=== PATIENT | male | born 1950 | race Caucasian/White ===

== ENCOUNTER 2020-07-20 18:33 | Inpatient (IN) | payer OTHER, MEDICARE ==
[~2020-07-20] VITALS: Ht 365.8 cm; Wt 80.8 kg
[2020-07-20] MEDS ORDERED: LIDOCAINE HCL 2% TOP JELLY 5ML TOP ONE (19:20)
[2020-07-21] MEDS ORDERED: oxyCODONE HCL 5MG TAB PO ONE (06:15)
[2020-07-21 09:13] LABS: Hematocrit 31.4 % (41.0-53.0); Mean Corpuscular Hemoglobin 33.6 pg (28.0-32.0); Mean Corpuscular Hgb Conc. 34.9 g/dL (32.0-36.0); Mean Corpuscular Volume 96.3 fL (80.0-100.0); Red Blood Cells 3.26 10^6/uL (4.5-5.90); Red Cell Distribution Width 13.7 % (11.8-14.3); White Blood Cell 8.2 10^3/uL (4.4-10.8)
[2020-07-21 09:19] LABS: Basophils % (manual) 0 (0.0-2.0); Blast Cells 0; Eosinophils % (manual) 0 (0-7); Myelocytes % 0; Promyelocytes % 0; Reactive Lymphocytes 0
[2020-07-21 09:20] LABS: Albumin 1.9 g/dL (3.4-5.0); Calcium 8.1 mg/dL (8.5-10.1); Potassium 3.9 mmol/L (3.5-5.1)
[2020-07-21 09:23] LABS: Bilirubin, Total 0.4 mg/dL (0.2-1.0); Total Protein 5.9 g/dL (6.4-8.2)
[2020-07-21 09:34] LABS: Urine Bacteria FEW /hpf (None Seen); Urine Blood 2+ /uL (Negative); Urine Mucus FEW (None Seen); Urine Specific Gravity 1.015 (1.001-1.035); Urine WBC 1819 /hpf (0 - 3); Urine WBC Clumps PRESENT /hpf (None Seen)
[2020-07-21 09:41] LABS: INR 4.6 (0.9-1.15)
[2020-07-21 11:59] LABS: INR 1.01 (0.9-1.15)
[2020-07-21] MEDS ORDERED: SODIUM CHLORIDE 0.9% 1,000 ML IV SCH (12:30)
[2020-07-21] MEDS ORDERED: cefTRIAXone 1GM/50ML D5W 50 ML IV ONE (12:30)
[2020-07-21 12:42] LABS: Band Neutrophils % (manual) 21; Lymphocytes % (manual) 12 (10.0-50.0)
[2020-07-21 12:43] LABS: Metamyelocytes % 1; Monocytes % (manual) 22 (0-12)
[2020-07-21] MEDS ORDERED: HYDROcodone-ACET 5/325MG TAB PO ONE (13:15)
[2020-07-21] MEDS ORDERED: HYDROcodone-ACET 5/325MG TAB ONE (13:34)
[2020-07-21] MEDS ORDERED: LIDOCAINE 2% (LOCAL ANESTH.) PF 5ml SDV ONE (13:56)
[2020-07-21] MEDS ORDERED: NITROGLYCERIN 0.4 MG SL TAB SL PRN (14:30)
[2020-07-21] MEDS ORDERED: MORPHINE SULFATE INJECTION 2 MG/ML SYRG IV PRN ×2 (14:30)
[2020-07-21] MEDS: SODIUM CHLORIDE 0.9% 1,000 ML IV SCH (15:29)
[2020-07-21] MEDS ORDERED: ATE50T PO (20:43)
[2020-07-21] MEDS ORDERED: METF-370 PO (20:43)
[2020-07-21] MEDS ORDERED: METH10T GT (20:43)
[2020-07-21] MEDS ORDERED: TRAZ-181 PO (20:43)
[2020-07-21 21:30] VITALS: BP 127/78
[2020-07-21 22:00] VITALS: BP 127/78
[2020-07-22] MEDS: SODIUM CHLORIDE 0.9% 1,000 ML IV SCH ×2 (04:42→17:10)
[2020-07-22 05:52] VITALS: BP 108/61
[2020-07-22 05:57] LABS: Basophils # (auto) 0.1 10 ^3/uL (0-0.2); Basophils % (auto) 0.9 % (0.0-2.0); Eosinophils # (auto) 0.2 10 ^3/uL (0-0.8); Hematocrit 40.3 % (41.0-53.0); Hemoglobin 14.1 g/dL (13.5-17.5); Lymphocytes # (auto) 1.7 10 ^3/uL (0.4-5.4); Mean Corpuscular Hemoglobin 33.3 pg (28.0-32.0); Mean Corpuscular Hgb Conc. 34.9 g/dL (32.0-36.0); Mean Corpuscular Volume 95.4 fL (80.0-100.0); Monocytes % (auto) 9.3 % (0.0-12.0); Neutrophils # (auto) 7.8 10 ^3/uL (1.6-8.6); Neutrophils % (auto) 71.8 % (37.0-80.0); Nucleated Red Blood Cells % 0.2 %; Red Blood Cells 4.22 10^6/uL (4.5-5.90); Red Cell Distribution Width 15.3 % (11.8-14.3); White Blood Cell 10.9 10^3/uL (4.4-10.8)
[2020-07-22 06:21] LABS: Potassium 3.6 mmol/L (3.5-5.1)
[2020-07-22 06:28] LABS: BUN/Creatinine Ratio 10.8; Calcium 8.6 mg/dL (8.5-10.1)
[2020-07-22 08:53] VITALS: BP 127/72
[2020-07-22] MEDS ORDERED: METHADONE HCL 10 MG TAB PO SCH ×2 (10:00)
[2020-07-22] MEDS ORDERED: fentaNYL CITRATE 100 MCG/2 ML VL ONE (10:19)
[2020-07-22 13:06] VITALS: BP 143/81
[2020-07-22 16:44] VITALS: BP 152/58
[2020-07-22 17:59] VITALS: BP 127/72
== END 2020-07-22 18:45 | disposition home or self-care (01) | DRG 699 ==
LOC: EDBD 18:33 → ER 18:33 → TELE 07-21 14:24 → TELE-WESTW 07-21 21:07
PROVIDERS: ADMIT Nurse Practitioner Acute Care; ATTEND Internal Medicine
PROC: 0T9B70Z Drainage of Bladder with Drainage Device, Via Natural or Artificial Opening (ICD-10-PCS; principal; 2020-07-22)
DX: T83.028A Displacement of other urinary catheter, initial encounter (principal); N17.9 Acute kidney failure, unspecified; E44.0 Moderate protein-calorie malnutrition; E87.1 Hypo-osmolality and hyponatremia; N30.90 Cystitis, unspecified without hematuria; N13.9 Obstructive and reflux uropathy, unspecified; G89.4 Chronic pain syndrome; Z88.0 Allergy status to penicillin; Z20.822 Contact with and (suspected) exposure to COVID-19; E78.5 Hyperlipidemia, unspecified; F17.210 Nicotine dependence, cigarettes, uncomplicated; I25.10 Atherosclerotic heart disease of native coronary artery without angina pectoris; I45.10 Unspecified right bundle-branch block; I50.9 Heart failure, unspecified; J44.9 Chronic obstructive pulmonary disease, unspecified; Y73.8 Miscellaneous gastroenterology and urology devices associated with adverse incidents, not elsewhere classified; Z79.891 Long term (current) use of opiate analgesic; Z85.828 Personal history of other malignant neoplasm of skin; Z96.659 Presence of unspecified artificial knee joint; Y92.89 Other specified places as the place of occurrence of the external cause
CPT/HCPCS: 36415; 76856; 76942; 80048; 80053; 81001; 85007; 85025; 85027; 85610; 87086; 87088; 87186; 87426; 96365; A4223; C1729; G0378; J0696; J2001

== ENCOUNTER 2022-10-17 14:11 | Inpatient (IN) | payer MEDICARE, OTHER ==
[~2022-10-17] VITALS: Ht 167.6 cm; Wt 68.0 kg
[~2022-10-17 14:11] MED LIST: METF-370 PO; METH10T GT; TRAZ-181 PO
[2022-10-17 15:51] LABS: Basophils # (auto) 0.1 10 ^3/uL (0-0.2); Basophils % (auto) 0.6 % (0.0-2.0); Eosinophils # (auto) 0 10 ^3/uL (0-0.8); Eosinophils % (auto) 0.4 % (0.0-7.0); Hematocrit 36.2 % (41.0-53.0); Lymphocytes # (auto) 0.7 10 ^3/uL (0.4-5.4); Lymphocytes % (auto) 6.3 % (10.0-50.0); Mean Corpuscular Hemoglobin 30.2 pg (28.0-32.0); Mean Corpuscular Hgb Conc. 33.2 g/dL (32.0-36.0); Mean Corpuscular Volume 91.1 fL (80.0-100.0); Monocytes # (auto) 0.9 10 ^3/uL (0-1.3); Neutrophils # (auto) 8.7 10 ^3/uL (1.6-8.6); Neutrophils % (auto) 83.7 % (37.0-80.0); Red Blood Cells 3.98 10^6/uL (4.5-5.90); White Blood Cell 10.4 10^3/uL (4.4-10.8)
[2022-10-17 16:35] LABS: Alanine Aminotransferase 13 U/L (7-40); Albumin 3.7 g/dL (3.2-4.8); Alkaline Phosphatase 101 U/L (46-116); Anion Gap 10.5 (5-15); Aspartate Aminotransferase 9 U/L (13-40); BUN/Creatinine Ratio 21.8 (10.0-20.0); Blood Urea Nitrogen 62 mg/dL (9-23); Calcium 9.2 mg/dL (8.7-10.4); Carbon Dioxide 19.5 mmol/L (20-30); Chloride 106 mmol/L (98-107); Glucose 143 mg/dL (74-106); Lipase 41 U/L (12-53); Sodium 136 mmol/L (136-145)
[2022-10-17 16:36] LABS: Bilirubin, Total 0.3 mg/dL (0.2-1.0); Total Protein 6.8 g/dL (5.7-8.2)
[2022-10-17] MEDS ORDERED: SODIUM CHLORIDE 0.9% 1,000 ML IV ONE ×2 (18:00→19:30)
[2022-10-17] MEDS ORDERED: ACETAMINOPHEN 325 MG TAB PO PRN (19:30)
[2022-10-17 20:59] VITALS: PULSE 56; RESP 16; O2SAT 99
[2022-10-17] MEDS ORDERED: CIPROFLOXACIN 400MG/200ML 200 ML IV ONE (21:30)
[2022-10-17] MEDS ORDERED: DEXTROSE (50%) 50ML SYRG IV PRN (21:45)
[2022-10-17] MEDS ORDERED: IPRATROPIUM BROM 0.5 MG/2.5ML INH SOL NEB PRN (21:45)
[2022-10-17] MEDS: SODIUM CHLORIDE 0.9% 1,000 ML IV SCH (21:45)
[2022-10-17] MEDS ORDERED: ALBUTEROL SULF 2.5 MG/0.5ML(0.5%) NEB SOLN NEB PRN (21:45)
[2022-10-17] MEDS: ACCU-CHEK COMFORT CURVE STRIP VI SCH (22:00)
[2022-10-17 22:51] LABS: Urine Bacteria MOD /hpf (None Seen); Urine Blood 3+ /uL (Negative); Urine Clarity CLOUDY (Clear); Urine Color Red (Yellow); Urine Protein, UAD 2+ (Negative); Urine Urobilinogen Normal (Negative); Urine WBC 1550 /hpf (0 - 3); Urine WBC Clumps PRESENT /hpf (None Seen); Urine pH 6.5 (5.0-8.0)
[2022-10-17 22:58] LABS: Urine Specific Gravity 1.016 (1.001-1.035)
[2022-10-17] MEDS: InsuLIN REG 1unit/0.01ml Soln (100units/ml) SC SCH (23:15)
[2022-10-18] VITALS (11 sets, daily range): BP systolic 83–120; BP diastolic 55–69; PULSE 49–69; RESP 13–19; TEMP 97.4–97.9; O2SAT 92–98
[2022-10-18] MEDS: SODIUM CHLORIDE 0.9% 1,000 ML IV SCH ×3 (05:34→17:42)
[2022-10-18] MEDS: ACCU-CHEK COMFORT CURVE STRIP VI SCH ×4 (06:03→22:00)
[2022-10-18] MEDS: InsuLIN REG 1unit/0.01ml Soln (100units/ml) SC SCH ×4 (06:04→21:28)
[2022-10-18 06:57] LABS: Basophils # (auto) 0 10 ^3/uL (0-0.2); Basophils % (auto) 0.5 % (0.0-2.0); Eosinophils # (auto) 0.2 10 ^3/uL (0-0.8); Eosinophils % (auto) 1.8 % (0.0-7.0); Hematocrit 34.5 % (41.0-53.0); Hemoglobin 11.4 g/dL (13.5-17.5); Lymphocytes # (auto) 0.7 10 ^3/uL (0.4-5.4); Lymphocytes % (auto) 7.5 % (10.0-50.0); Mean Corpuscular Hemoglobin 30.5 pg (28.0-32.0); Mean Corpuscular Hgb Conc. 33.2 g/dL (32.0-36.0); Mean Corpuscular Volume 91.9 fL (80.0-100.0); Monocytes # (auto) 0.8 10 ^3/uL (0-1.3); Monocytes % (auto) 8.7 % (0.0-12.0); Neutrophils # (auto) 7.6 10 ^3/uL (1.6-8.6); Neutrophils % (auto) 81.5 % (37.0-80.0); Nucleated Red Blood Cells % 0.1 %; Red Blood Cells 3.75 10^6/uL (4.5-5.90); White Blood Cell 9.3 10^3/uL (4.4-10.8)
[2022-10-18 07:17] LABS: Alanine Aminotransferase 10 U/L (7-40); Albumin 3.2 g/dL (3.2-4.8); Alkaline Phosphatase 90 U/L (46-116); Anion Gap 8.1 (5-15); Aspartate Aminotransferase 11 U/L (13-40); BUN/Creatinine Ratio 23.9 (10.0-20.0); Blood Urea Nitrogen 59 mg/dL (9-23); Calcium 8.5 mg/dL (8.5-10.1); Carbon Dioxide 21.9 mmol/L (20-30); Chloride 105 mmol/L (98-107); Cholesterol 111 mg/dL (< 200); Glucose 149 mg/dL (74-106); HDL Cholesterol 33 mg/dL (40-59); LDL Cholesterol 57 mg/dL (< 100); Potassium 3.9 mmol/L (3.5-5.1); Sodium 135 mmol/L (136-145); Triglycerides 108 mg/dL (< 150)
[2022-10-18 07:18] LABS: Bilirubin, Total 0.2 mg/dL (0.2-1.0); Total Protein 5.8 g/dL (5.7-8.2)
[2022-10-18] MEDS: METHADONE HCL 10 MG TAB PO SCH ×2 (08:54→21:22)
[2022-10-18] MEDS ORDERED: PANTOPRAZOLE 40 MG TAB PO SCH (10:00)
[2022-10-18 10:38] LABS: INR 1.09 (0.9-1.15); Prothrombin Time 11.4 sec (9.3-11.8)
[2022-10-18] MEDS ORDERED: fentaNYL CITRATE 100 MCG/2 ML VL ONE (12:35)
[2022-10-18] MEDS ORDERED: MIDAZOLAM HCL 2MG/2ML 2ml VIAL (1mg/ml) ONE (12:35)
[2022-10-18] MEDS ORDERED: IODIXANOL 320MG/ML 100ML BTL IV ONE ×2 (12:35→13:37)
[2022-10-18] MEDS ORDERED: LIDOCAINE 2%HCL (LOCAL ANESTH.) INJ 20ML MDV ONE (12:35)
[2022-10-18] MEDS ORDERED: SODIUM CHL 0.9% 50 ML ONE (12:36)
[2022-10-18] MEDS ORDERED: IOHEXOL 350 MG/ML 100ML IJ ONE (13:37)
[2022-10-18] MEDS: CIPROFLOXACIN 400MG/200ML 200 ML IV SCH (21:22)
[2022-10-18] MEDS: traZODone HCL 50 MG TAB PO SCH (23:29)
[2022-10-19] MEDS: SODIUM CHLORIDE 0.9% 1,000 ML IV SCH ×3 (02:44→20:25)
[2022-10-19] MEDS: ACCU-CHEK COMFORT CURVE STRIP VI SCH ×4 (06:30→22:00)
[2022-10-19] MEDS: InsuLIN REG 1unit/0.01ml Soln (100units/ml) SC SCH ×3 (06:30→17:00)
[2022-10-19 09:35] VITALS: BP 120/59; PULSE 57; RESP 16; TEMP 98; O2SAT 91
[2022-10-19] MEDS: METHADONE HCL 10 MG TAB PO SCH ×2 (09:49→22:15)
[2022-10-19 12:45] VITALS: BP 107/67; PULSE 55; RESP 15; TEMP 97.9; O2SAT 97
[2022-10-19 16:30] VITALS: BP 109/51; PULSE 49; RESP 16; TEMP 98; O2SAT 95
[2022-10-19 22:00] VITALS: BP 108/44; PULSE 54; RESP 18; TEMP 98.4; O2SAT 95
[2022-10-19] MEDS: traZODone HCL 50 MG TAB PO SCH (22:16)
[2022-10-19] MEDS: CIPROFLOXACIN 400MG/200ML 200 ML IV SCH (22:16)
[2022-10-20 05:00] VITALS: BP 127/59; PULSE 63; RESP 18; TEMP 98.5; O2SAT 91
[2022-10-20] MEDS: ACCU-CHEK COMFORT CURVE STRIP VI SCH ×4 (06:00→22:27)
[2022-10-20] MEDS: InsuLIN REG 1unit/0.01ml Soln (100units/ml) SC SCH ×4 (06:05→22:26)
[2022-10-20 09:00] VITALS: BP 130/73; PULSE 52; RESP 20; TEMP 98.5; O2SAT 97
[2022-10-20] MEDS: SODIUM CHLORIDE 0.9% 1,000 ML IV SCH ×3 (10:26→23:05)
[2022-10-20] MEDS: METHADONE HCL 10 MG TAB PO SCH ×2 (10:26→22:22)
[2022-10-20 13:00] VITALS: BP 132/64; PULSE 48; RESP 16; TEMP 97.9; O2SAT 97
[2022-10-20 17:00] VITALS: BP 125/74; PULSE 55; RESP 22; TEMP 98.5; O2SAT 96
[2022-10-20] MEDS: CIPROFLOXACIN 400MG/200ML 200 ML IV SCH (21:18)
[2022-10-20] MEDS: traZODone HCL 50 MG TAB PO SCH (22:23)
[2022-10-20 22:56] VITALS: BP 122/68; PULSE 53; RESP 19; TEMP 97.7; O2SAT 96
[2022-10-21 04:51] VITALS: BP 117/66; PULSE 52; RESP 17; TEMP 97.1; O2SAT 96
[2022-10-21] MEDS: SODIUM CHLORIDE 0.9% 1,000 ML IV SCH ×4 (05:45→19:05)
[2022-10-21] MEDS: InsuLIN REG 1unit/0.01ml Soln (100units/ml) SC SCH ×4 (06:52→20:52)
[2022-10-21] MEDS: ACCU-CHEK COMFORT CURVE STRIP VI SCH ×4 (06:53→21:02)
[2022-10-21] MEDS ORDERED: CIPR-173 PO (08:17)
[2022-10-21 09:00] VITALS: BP 109/56; PULSE 61; RESP 16; TEMP 97.5; O2SAT 96
[2022-10-21 09:59] LABS: Basophils # (auto) 0.1 10 ^3/uL (0-0.2); Basophils % (auto) 0.8 % (0.0-2.0); Eosinophils # (auto) 0.2 10 ^3/uL (0-0.8); Eosinophils % (auto) 1.8 % (0.0-7.0); Hematocrit 33.6 % (41.0-53.0); Hemoglobin 11.2 g/dL (13.5-17.5); Lymphocytes # (auto) 0.6 10 ^3/uL (0.4-5.4); Mean Corpuscular Hemoglobin 30.1 pg (28.0-32.0); Mean Corpuscular Hgb Conc. 33.3 g/dL (32.0-36.0); Mean Corpuscular Volume 90.2 fL (80.0-100.0); Monocytes # (auto) 0.8 10 ^3/uL (0-1.3); Neutrophils # (auto) 8.9 10 ^3/uL (1.6-8.6); Neutrophils % (auto) 83.4 % (37.0-80.0); Red Blood Cells 3.72 10^6/uL (4.5-5.90); White Blood Cell 10.6 10^3/uL (4.4-10.8)
[2022-10-21 10:09] LABS: Chloride 105 mmol/L (98-107); Potassium 3.9 mmol/L (3.5-5.1); Sodium 134 mmol/L (136-145)
[2022-10-21 10:10] LABS: Anion Gap 5.4 (5-15); Carbon Dioxide 23.6 mmol/L (20-30)
[2022-10-21 10:11] LABS: Calcium 8.5 mg/dL (8.5-10.1)
[2022-10-21 10:15] LABS: BUN/Creatinine Ratio 14.6 (10.0-20.0); Blood Urea Nitrogen 23 mg/dL (9-23); Glucose 198 mg/dL (74-106)
[2022-10-21] MEDS: METHADONE HCL 10 MG TAB PO SCH ×2 (11:04→21:02)
[2022-10-21] MEDS ORDERED: SODIUM CHLORIDE 0.9% 1,000 ML IV ONE (11:15)
[2022-10-21 13:00] VITALS: BP 119/72; PULSE 54; RESP 14; TEMP 97.8; O2SAT 98
[2022-10-21] MEDS: CIPROFLOXACIN 400MG/200ML 200 ML IV SCH (13:46)
[2022-10-21 17:00] VITALS: BP 126/67; PULSE 54; RESP 18; TEMP 98; O2SAT 99
[2022-10-21 20:00] VITALS: TEMP 36.7
[2022-10-21] MEDS: traZODone HCL 50 MG TAB PO SCH (21:01)
[2022-10-21 22:00] VITALS: BP 104/57; PULSE 54; RESP 18; TEMP 97.6; O2SAT 97
[2022-10-22] MEDS: SODIUM CHLORIDE 0.9% 1,000 ML IV SCH ×2 (01:45→10:11)
[2022-10-22 05:00] VITALS: BP 131/47; PULSE 73; RESP 18; TEMP 98; O2SAT 98
[2022-10-22 06:20] LABS: Chloride 105 mmol/L (98-107); Potassium 4.3 mmol/L (3.5-5.1); Sodium 133 mmol/L (136-145)
[2022-10-22 06:21] LABS: Calcium 8.6 mg/dL (8.5-10.1)
[2022-10-22 06:24] LABS: Carbon Dioxide 23.4 mmol/L (20-30)
[2022-10-22 06:26] LABS: BUN/Creatinine Ratio 13.8 (10.0-20.0); Blood Urea Nitrogen 21 mg/dL (9-23); Glucose 119 mg/dL (74-106)
[2022-10-22] MEDS: InsuLIN REG 1unit/0.01ml Soln (100units/ml) SC SCH ×2 (06:50→12:45)
[2022-10-22] MEDS: CIPROFLOXACIN 400MG/200ML 200 ML IV SCH (06:50)
[2022-10-22] MEDS: ACCU-CHEK COMFORT CURVE STRIP VI SCH ×2 (06:51→12:13)
[2022-10-22 07:22] LABS: Anion Gap 5 (5-15)
[2022-10-22 08:00] VITALS: BP 123/63; PULSE 55; RESP 18; TEMP 98.4
[2022-10-22 09:15] VITALS: BP 123/63; PULSE 55; RESP 18; TEMP 98.4; O2SAT 97
[2022-10-22] MEDS: METHADONE HCL 10 MG TAB PO SCH (10:11)
[2022-10-22 11:45] VITALS: BP 123/63; PULSE 62; RESP 18; TEMP 36.9; O2SAT 97
[2022-10-22 13:02] VITALS: BP 108/59; PULSE 60; RESP 20; TEMP 97.7; O2SAT 96
== END 2022-10-22 13:15 | disposition home or self-care (01) | DRG 698 ==
LOC: EDBD 14:11 → ER 14:11 → OVERFLOW 19:30 → CENTRAL 10-18 01:33
PROVIDERS: ADMIT Nurse Practitioner Family; ATTEND Family Medicine
PROC: 0T9430Z Drainage of Left Kidney Pelvis with Drainage Device, Percutaneous Approach (ICD-10-PCS; principal; 2022-10-18)
PROC: 0T25X0Z Change Drainage Device in Kidney, External Approach (ICD-10-PCS; 2022-10-18)
PROC: BT13YZZ Fluoroscopy of Bilateral Kidneys using Other Contrast (ICD-10-PCS; 2022-10-18)
PROC: BT42ZZZ Ultrasonography of Left Kidney (ICD-10-PCS; 2022-10-18)
DX: N99.522 Malfunction of incontinent external stoma of urinary tract (principal); N17.0 Acute kidney failure with tubular necrosis; N13.6 Pyonephrosis; N17.9 Acute kidney failure, unspecified; J44.9 Chronic obstructive pulmonary disease, unspecified; E78.5 Hyperlipidemia, unspecified; G89.29 Other chronic pain; B96.20 Unspecified Escherichia coli [E. coli] as the cause of diseases classified elsewhere; B96.4 Proteus (mirabilis) (morganii) as the cause of diseases classified elsewhere; E11.22 Type 2 diabetes mellitus with diabetic chronic kidney disease; F17.210 Nicotine dependence, cigarettes, uncomplicated; I12.9 Hypertensive chronic kidney disease with stage 1 through stage 4 chronic kidney disease, or unspecified chronic kidney disease; M54.50 Low back pain, unspecified; N18.9 Chronic kidney disease, unspecified; Z87.440 Personal history of urinary (tract) infections; Y73.2 Prosthetic and other implants, materials and accessory gastroenterology and urology devices associated with adverse incidents; Y92.89 Other specified places as the place of occurrence of the external cause; Z88.0 Allergy status to penicillin; Z88.8 Allergy status to other drugs, medicaments and biological substances; Z99.3 Dependence on wheelchair; Z79.82 Long term (current) use of aspirin; Z90.49 Acquired absence of other specified parts of digestive tract
CPT/HCPCS: 36415; 50432; 74176; 74425; 76775; 76942; 80048; 80053; 80061; 81001; 82962; 83036; 83605; 83690; 84484; 85025; 85610; 85730; 86850; 86900; 86901; 87040; 87086; 87088; 87186; 93005; 99152; G0378; J1815; J2250; Q9967